=== PATIENT | male | born 1980 | race Two or more races ===

== ENCOUNTER 2019-05-19 07:48 | Emergency (ER) | payer SELFPAY ==
[2019-05-19] MEDS ORDERED: Aspirin 81 MG Tab.Chew PO ONE (07:59)
[2019-05-19 08:34] LABS: CHLORIDE,CL 100 mEq/L (98-106); SODIUM,NA 137 mEq/L (136-145)
--- NOTE | 2019-05-19 12:33 | EDM.PDOC ---
ED HPI GENERAL MEDICAL PROBLEM - General Chief Complaint: Chest Pain Stated Complaint: CHEST PAIN Time Seen by Provider: 05/19/19 08:15 Source of Information: Reports: Patient History Limitations: Reports: No Limitations - History of Present Illness INITIAL COMMENTS - FREE TEXT/NARRATIVE: Patient presents with complaints of anterior chest pain. States started to have symptoms last evening and persisted through the night. 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 Has been a nagging discomfort in the area of the left nipple. Does not radiate from there but was noting pain to the left hand/wrist today and his employer got concerned. Denies shortness of breath. No nausea or vomiting. Has been having issues with headaches as of late as well. No fevers. No cough. PMH negative. Onset: Gradual Duration: Hour(s):, Constant Location: Reports: Chest Quality: Reports: Throbbing Severity: Moderate Improves with: Reports: None Worsens with: Reports: None Associated Symptoms: Reports: Chest Pain, Headaches. Denies: Cough, Diaphoresis , Fever/Chills, Loss of Appetite, Nausea/Vomiting, Weakness - Related Data Allergies Allergy/AdvReac Type Severity Reaction Status Date / Time No Known Allergies Allergy Verified 05/19/19 08:03 Home Meds: Home Meds . [No Known Home Meds] 05/19/19 [History] Past Medical History - Past Health History Medical/Surgical History: Denies Medical/Surgical History Social & Family History - Family History Family Medical History: Noncontributory - Tobacco Use Smoking Status *Q: Never Smoker Second Hand Smoke Exposure: No - Caffeine Use Caffeine Use: Reports: None ED ROS GENERAL - Review of Systems Review Of Systems: See Below Constitutional: Denies: Fever, Chills, Malaise, Weakness, Fatigue HEENT: Denies: Ear Pain, Throat Pain, Vertigo Respiratory: Denies: Shortness of Breath Cardiovascular: Reports: Chest Pain. Denies: Edema, Lightheadedness Endocrine: Reports: No Symptoms GI/Abdominal: Denies: Nausea, Vomiting : Reports: No Symptoms Musculoskeletal: Reports: Arm Pain. Denies: Neck Pain, Shoulder Pain Skin: Reports: No Symptoms Neurological: Reports: Headache ED EXAM, GENERAL - Physical Exam Exam: See Below Exam Limited By: No Limitations General Appearance: Alert, WD/WN, No Apparent Distress Ears: Normal External Exam, Normal TMs Nose: Normal Inspection, Normal Mucosa, No Blood Throat/Mouth: Normal Inspection, Normal Oropharynx Head: Normocephalic Neck: Normal Inspection, Supple, Non-Tender Respiratory/Chest: No Respiratory Distress, Lungs Clear, Normal Breath Sounds Cardiovascular: Regular Rate, Rhythm, No Edema GI/Abdominal: Normal Bowel Sounds, Soft, Non-Tender Extremities: Normal Inspection, No Pedal Edema Neurological: Alert, Oriented Course - Vital Signs Last Recorded V/S: Last Vital Signs Temp 97.2 F 05/19/19 07:51 Pulse 73 05/19/19 09:32 Resp 18 05/19/19 08:26 BP 131/79 05/19/19 08:26 Pulse Ox 99 05/19/19 08:26 - Orders/Labs/Meds Labs: Laboratory Tests 05/19/19 05/19/19 05/19/19 Range/Units 07:58 08:10 11:30 WBC 6.9 (5.0-10.0) 10^3/uL RBC 4.73 (4.50-6.00) 10^6/uL Hgb 14.8 (14.0-18.0) g/dL Hct 43.9 (40.0-54.0) % MCV 92.8 (82.0-94.0) fL MCH 31.3 (27.0-32.0) pg MCHC 33.7 (33.0-38.0) g/dL RDW Coeff of Joel 12.8 (11.0-15.0) % Plt Count 262 (150-400) 10^3/uL Neut % (Auto) 57.9 (35-85) % Lymph % (Auto) 32.1 (10-55) % [place] % (Auto) 7.6 (0-16) % Eos % (Auto) 2.0 (0-5) % Baso % (Auto) 0.4 (0-3) % Neut # (Auto) 4.01 (1.80-7.00) 10^3/uL Lymph # (Auto) 2.23 (1.00-4.80) 10^3/uL [place] # (Auto) 0.53 (0.00-0.80) 10^3/uL Eos # (Auto) 0.14 (0.00-0.45) 10^3/uL Baso # (Auto) 0.03 10^3/uL Sodium 137 (136-145) mEq/L Potassium 3.6 (3.5-5.0) mEq/L Chloride 100 (98-106) mEq/L Carbon Dioxide 34 H (21-32) mmol/L BUN 19 H (7-18) mg/dL Creatinine 1.0 (0.7-1.3) mg/dL Est Cr Clr Drug Dosing 86.27 mL/min Estimated GFR (MDRD) > 60 (>=60) mL/min Glucose 144 H (75-99) mg/dL Calcium 9.0 (8.4-10.1) mg/dL Magnesium 2.0 (1.8-2.4) mg/dL Total Bilirubin 0.3 (0.0-1.0) mg/dL AST 24 (15-37) U/L ALT 48 (12-78) U/L Alkaline Phosphatase 56 (46-116) U/L Troponin I < 0.017 < 0.017 (0.00-0.06) ng/mL Total Protein 7.4 (6.4-8.2) g/dL Albumin 3.9 (3.4-5.0) g/dL Meds: Medications Discontinued Medications Generic Name Dose Route Start Last Admin Trade Name Lalo PRN Reason Stop Dose Admin Aspirin 324 mg 05/19/19 07:59 05/19/19 08:11 Aspirin PO 05/19/19 08:00 324 mg ONETIME ONE Administration - Re-Assessments/Exams Free Text/Narrative Re-Assessment/Exam: 05/19- 0900 Labs are all negative. Unable to reproduce the pain with palpation of his chest. Has good range of motion of his arm. Will monitor cardiac rhythm and repeat troponin at 1130 today 1300-Labs remain normal. Patient has been sleeping this am. Still has dull pain. Will discharge home with NSAIDs. Departure - Departure Time of Disposition: 12:32 Disposition: Home, Self-Care 01 Condition: Good Clinical Impression: Atypical chest pain Instructions: Chest Wall Pain Referrals: PCP,None [Primary Care Provider] - Forms: ED Department Discharge Additional Instructions: 1. Rest 2. Ibuprofen for discomfort 3. Avoid straining left shoulder or chest for the next week 4. Follow up if persisting concerns.
== END 2019-05-19 12:44 | disposition home or self-care (01) ==
LOC: CC.ED 07:48
DX: R07.89 Other chest pain (principal)
CPT/HCPCS: 36415; 71046; 80053; 83735; 84484; 85025; 93005; 99285-25; A9270-GY